=== PATIENT | female | born 1960 | race Caucasian/White ===

== ENCOUNTER 2017-03-10 13:23 | Emergency (ER) | payer OTHER ==
[2017-03-10] MEDS ORDERED: ALBUTEROL 3 ML DEYVIAL IH ONE (14:38)
--- NOTE | 2017-03-10 14:40 | EDPHY ---
H & P Stated Complaint: cough, not feeling well since feb 17 Time Seen by Provider: 03/10/17 14:25 HPI/ROS: CHIEF COMPLAINT: Cough, sore throat, nasal congestion HISTORY OF PRESENT ILLNESS: The patient presents to the ED with complaints of cough, sore throat nasal congestion. The patient has had symptoms for approximately 2 and half weeks. She has been using [id number] antitussive medications and guaifenesin. Patient does report a remote history of bronchitis and pneumonia. She denies any significant past medical history. She denies pleuritic chest pain. She denies asymmetric calf pain or swelling. She denies prolonged immobilization or surgery. The patient denies any additional complaints of abdominal pain, nausea, vomiting or diarrhea. REVIEW OF SYSTEMS: A comprehensive 10 point review of systems is otherwise negative aside from elements mentioned in the history of present illness. Source: Patient Exam Limitations: No limitations - Personal History Current Tetanus Diphtheria and Acellular Pertussis (TDAP): Yes - Medical/Surgical History Hx Asthma: No Hx Chronic Respiratory Disease: No Hx Diabetes: No Hx Cardiac Disease: No Hx Renal Disease: No Hx Cirrhosis: No Hx Alcoholism: No Hx HIV/AIDS: No Hx Splenectomy or Spleen Trauma: No Other PMH: htn, restless leg, degerative joint disease. arthritis, fusion, depression, diverticulitis, colon resection, PNA x3 - Social History Smoking Status: Never smoked - Physical Exam Exam: General Appearance: Alert, no distress Eyes: Pupils equal and round no pallor or injection ENT, Mouth: Mucous membranes moist Respiratory: There are no retractions, lungs are clear to auscultation Cardiovascular: Regular rate and rhythm Gastrointestinal: Abdomen is soft and nontender, no masses, bowel sounds normal Neurological: A&O, normal motor function, normal sensory exam, normal cranial nerves Skin: Warm and dry, no rashes Musculoskeletal: Neck is supple nontender Extremities: symmetrical, full range of motion Constitutional: Initial Vital Signs Temperature (C) 37.1 C 03/10/17 14:10 Heart Rate 86 03/10/17 14:10 Respiratory Rate 20 03/10/17 14:10 Blood Pressure 147/85 H 03/10/17 14:10 O2 Sat (%) 97 03/10/17 14:10 O2 Delivery Mode Room Air Allergies/Adverse Reactions: morphine Allergy (Verified 03/10/17 14:07) Home Medications: Medication Instructions Recorded Albuterol [Ventolin Hfa Inhaler] 2 puffs IH QID PRN #1 mdi 03/10/17 Flexeril 10 MG (*) 03/10/17 Gabapentin 03/10/17 Lisinopril/Hctz 20/12.5MG 03/10/17 Ropinirole ER 03/10/17 Zoloft 50mg (*) 03/10/17 predniSONE [prednisone 20mg (RX)] 3 tab PO DAILY #15 tab 03/10/17 Medical Decision Making - Diagnostics Imaging Results: Imaging Impressions Chest X-Ray 03/10/17 14:38 Impression: Airways disease. Possible underlying diffuse interstitial lung disease. Consider noncontrast high-resolution chest CT, as clinically directed, if it is important to characterize and define possible diffuse interstitial lung disease. ED Course/Re-evaluation: The patient presents to the ED for evaluation of a cough which has been present for 3 weeks. The patient's vital signs are stable. Her chest x-ray demonstrates no evidence of pneumonia. The radiologist raises the possibility of questionable diffuse interstitial lung disease which is not appreciated by myself. At this point time I do feel the patient can follow up with her primary care provider. She has been advised of the chest x-ray findings. She will be given a prescription for prednisone and albuterol inhaler. Differential Diagnosis: Differential diagnosis considered includes asthma, bronchitis, pneumonia - Data Points Medications Given: Discontinued Medications Albuterol (Proventil Neb) 3 ml IH EDNOW ONE Stop: 03/10/17 14:39 Last Admin: 03/10/17 14:45 Dose: 3 ml Departure - Departure Disposition: Home, Routine, Self-Care Clinical Impression: Acute bronchitis Condition: Good Instructions: Acute Bronchitis (ED) Additional Instructions: 1. Albuterol inhaler as needed every 2 hr for cough. 2. Take prednisone as directed for next 5 days. 3. Please schedule a follow-up appointment with your primary care provider to review your chest x-ray. Referrals: Ronald aRmirez MD [Primary Care Provider] - As per Instructions
[2017-03-10 16:01] VITALS: RESP 16; O2SAT 99
[2017-03-10 16:11] LABS: PLATELET COUNT 178 10^3/uL (150-400)
[2017-03-10 16:47] VITALS: BP 131/82; PULSE 74; TEMP 98.1
== END 2017-03-10 16:46 | disposition home or self-care (01) ==
DX: J20.9 Acute bronchitis, unspecified (principal); I10 Essential (primary) hypertension

== ENCOUNTER → 2017-03-23 | Outpatient (CLI) | payer OTHER | LOC: FIMAGING 14:09 | PROVIDERS: ATTEND Internal Medicine | DX: R93.8 Abnormal findings on diagnostic imaging of other specified body structures (principal); R91.8 Other nonspecific abnormal finding of lung field ==

== ENCOUNTER → 2017-04-10 | Outpatient (CLI) | payer OTHER | LOC: BMCIMAGING 07:48 | PROVIDERS: ATTEND Internal Medicine | DX: M79.672 Pain in left foot (principal); R93.6 Abnormal findings on diagnostic imaging of limbs ==